=== PATIENT | male | born 1965 | race Caucasian/White ===

== ENCOUNTER → 2018-09-27 | Outpatient (CLI) | payer OTHER ==
--- NOTE | 2018-09-27 10:33 | CT ---
EXAMINATION TYPE: CT chest w con DATE OF EXAM: 09/27/2018 COMPARISON: None HISTORY: 52-year-old male Solitary pulmonary nodules TECHNIQUE: Contiguous axial scanning of the chest after the administration of 100 mL of Isovue 300. Coronal/sagittal reconstructions performed. CT DLP: 327.4mGycm. Automatic exposure control utilized for a dose reduction. FINDINGS: Heart normal size without pericardial effusion. Aorta normal caliber with conventional branching anatomy. Borderline to mildly enlarged caliber to the main right and left pulmonary arteries are 2.6 and 2.5 c m, respectively. Findings there represent underlying pulmonary chill hypertension. No thoracic lymphadenopathy by CT size criteria. Scattered bilateral pulmonary nodules are present, the largest is, shape and density calcified measur ing 1.8 x 0.8 cm, possible calcified granuloma. Second dominant nodule is present at the peripheral right lower lobe, axial image 34 measuring 1.6 cm with some punctate eccentric calcifications. Third dominant nodule posterolateral right mid lung measuring 1.1 x 0.5 cm. Additional scattered pulmonary nodules are present, some of which are clustered suggesting the nickel plater olateral left lower lobe axial images 30 through 34 with individual nodules measuring up to 8 mm. A few additional scattered 4 mm and smaller pulmonary nodules are present. No consolidation or pleural effusion. Visualized upper abdomen shows no gross abnormality. Bones: Degenerative disc disease midthoracic spine. IMPRESSION: 1. Scattered bilateral pulmonary nodules. The largest is on the left measuring up to 1.8 cm and is de nsely calcified suggesting a calcified granuloma. Other nodules are indeterminate measuring up to 1.6 cm. Per new Fleischner guidelines, recommend CT in 3-[address] again at 18-24 months if stable at that time. 2. Possible underlying pulmonary arterial hypertension. Clinically correlate.
== END | disposition home or self-care (01) ==
LOC: RADCTMAIN 08:47
PROVIDERS: ATTEND Family Medicine
DX: R91.8 Other nonspecific abnormal finding of lung field (principal)
CPT/HCPCS: 71260; Q9967

== ENCOUNTER → 2018-09-29 | Outpatient (CLI) | payer OTHER ==
--- NOTE | 2018-09-29 10:17 | MR ---
EXAMINATION TYPE: MR lumbar spine wo con DATE OF EXAM: 09/29/2018 COMPARISON: NONE HISTORY: Dorsalgia / Spine pain TECHNIQUE: T1 and T2 axial and sagittal images of the lumbar spine are submitted. FINDINGS: There is no abnormal signal seen within the visualized spinal cord or paraspinal soft tissu es. Simple appearing right renal cyst incidentally noted At L1-2 there is no disc herniation or canal stenosis. No foraminal encroachment At L2-3 there is no disc herniation or canal stenosis. No foraminal encroachment. Hypertrophic change facets. At L3-4 there is there is moderate degenerative disc disease with broad-based central disc protrusion or herniation. There is moderate compression thecal sac. Facet arthropathy and ligamentum flavum con tribute to moderate canal stenosis and bilateral foraminal encroachment. At L4-5 there is degenerative disc disease with broad-based disc protrusion. Hypertrophic change face ts and ligamentum flavum result in moderate canal stenosis and bilateral foraminal encroachment. At L5-S1 there is mild degenerative disc disease and facet arthropathy. No canal stenosis or foramina l encroachment IMPRESSION: 1. L3-4 and L4-5 there is broad-based central disc protrusion with hypertrophic changes result in mod erate canal stenosis and bilateral foraminal encroachment. EXAMINATION TYPE: MR cervical spine wo con DATE OF EXAM: 09/29/2018 COMPARISON: NONE HISTORY: Dorsalgia / Spine pain TECHNIQUE: T1 sagittal and coronal, T2 sagittal, and gradient echo axial views of the cervical spine are submitted. FINDINGS: The cranial cervical junction is preserved. There is no abnormal signal seen within the sp inal cord or paraspinal soft tissues. At C2-3 there is no disc herniation or canal stenosis. No foraminal encroachment. At C3-4 there is degenerative disc disease with posterior spondylosis and uncovertebral joint project ing. Disc bulging noted and there is moderate bilateral foraminal encroachment. No Canal stenosis. At C4-5 there is degenerative disc disease with posterior spondylosis. There is disc bulging greater paracentrally and laterally the right with moderate bilateral foraminal encroachment greater on the r ight. At C5-6 there is advanced degenerative disc disease with posterior spondylosis and uncovertebral join t hypertrophy. There is moderate bilateral foraminal encroachment. No Canal stenosis. At C6-7 there is degenerative disc disease and uncovertebral joint hypertrophy greater on the left wi th moderate left foraminal encroachment and mild right foraminal encroachment. Disc bulging greater p aracentrally to the left also noted. No Canal stenosis. At C7-T1 there is no disc herniation or canal stenosis. No foraminal encroachment. IMPRESSION: 1. Multilevel degenerative disc disease with multilevel posterior spondylosis, uncovertebral joint h ypertrophy, disc bulging and disc osteophyte complex resulting in significant bilateral foraminal enc roachment primarily involving levels C3-C7.
== END | disposition home or self-care (01) ==
LOC: RADMRIMAIN 09:08
PROVIDERS: ATTEND Family Medicine
DX: M48.061 Spinal stenosis, lumbar region without neurogenic claudication (principal); M51.26 Other intervertebral disc displacement, lumbar region; M50.31 Other cervical disc degeneration, high cervical region; M47.812 Spondylosis without myelopathy or radiculopathy, cervical region; M50.80 Other cervical disc disorders, unspecified cervical region
CPT/HCPCS: 72141; 72148

== ENCOUNTER 2018-10-28 13:31 | Observation (INO) | payer OTHER ==
[2018-10-28 13:40] VITALS: TEMP 98.1
[2018-10-28] MEDS ORDERED: NITROGLYCERIN OINT 1 INCH/GM PACKET TOPICAL STA (13:54)
[2018-10-28] MEDS ORDERED: ASPIRIN 81 MG PO STA (13:54)
--- NOTE | 2018-10-28 13:57 | ED ---
General Adult HPI - General Chief complaint: Chest Pain Stated complaint: Chest pain Time Seen by Provider: 10/28/18 13:40 Source: patient, RN notes reviewed Mode of arrival: ambulatory Limitations: no limitations - History of Present Illness Initial comments: Patient is a pleasant 52-year-old male presenting to the emergency Department with complaints of chest tightness. Onset of symptoms was around noon. Discomfort was somewhat severe and lasted a couple of minutes. Discomfort has been mild since that time and remains mild at this point. No radiation. No associated dyspnea or diaphoresis. Patient did feel somewhat nauseated earlier. Early this morning patient did have an episode of some discomfort of his right arm however none since that time. No history of similar symptoms previously. - Related Data Home Medications Medication Instructions Recorded Confirmed Naproxen 500 mg PO TID 10/28/18 10/28/18 Omeprazole [PriLOSEC] 20 mg PO AC-BID 10/28/18 10/28/18 tiZANidine [Zanaflex] 4 mg PO TID 10/28/18 10/28/18 Allergies Allergy/AdvReac Type Severity Reaction Status Date / Time No Known Allergies Allergy Verified 10/28/18 14:58 Review of Systems ROS Statement: Those systems with pertinent positive or pertinent negative responses have been documented in the HPI. ROS Other: All systems not noted in ROS Statement are negative. Constitutional: Denies: fever Eyes: Denies: eye pain ENT: Denies: ear pain Respiratory: Denies: cough, dyspnea Cardiovascular: Reports: chest pain Endocrine: Denies: fatigue Gastrointestinal: Reports: nausea. Denies: abdominal pain Genitourinary: Denies: dysuria Musculoskeletal: Denies: back pain Skin: Denies: rash Neurological: Denies: weakness Past Medical History Additional Past Medical History / Comment(s): back pain History of Any Multi-Drug Resistant Organisms: None Reported Past Surgical History: Appendectomy, Hernia Repair Smoking Status: Never smoker Past Alcohol Use History: None Reported Past Drug Use History: Marijuana General Exam Limitations: no limitations General appearance: alert, in no apparent distress Head exam: Present: atraumatic Eye exam: Present: normal appearance, PERRL ENT exam: Present: normal oropharynx Neck exam: Present: normal inspection Respiratory exam: Present: normal lung sounds bilaterally, chest wall tenderness Cardiovascular Exam: Present: regular rate, normal rhythm Expanded Peripheral pulses: 2+: Radial (R), Radial (L), Dorsalis Pedis (R), Dorsalis Pedis (L) GI/Abdominal exam: Present: soft. Absent: tenderness Extremities exam: Present: normal inspection. Absent: pedal edema, calf tenderness Neurological exam: Present: alert Psychiatric exam: Present: normal affect, normal mood Skin exam: Present: normal color Course Vital Signs 10/28/18 10/28/18 10/28/18 13:37 14:30 15:00 Temperature 98.1 F Pulse Rate 559 H 61 50 L Respiratory 18 15 18 Rate Blood Pressure 152/103 123/82 104/49 O2 Sat by Pulse 100 98 96 Oximetry 10/28/18 15:30 Temperature Pulse Rate 45 L Respiratory 14 Rate Blood Pressure 114/78 O2 Sat by Pulse 98 Oximetry EKG Findings - EKG Comments: EKG Findings:: Sinus bradycardia 56. MI 168. QRS 74. QT or 2. QTC 387. Normal axis. Normal QRS. No acute ST change. T waves are somewhat prominent. Medical Decision Making - Medical Decision Making Patient reevaluated and resting comfortably in bed. Patient and family updated on results and plan. Case was discussed in detail with Dr. walters, covering for hospital call, who will admit. - Lab Data Result diagrams: 10/28/18 14:14 10/28/18 14:14 Lab Results 10/28/18 10/28/18 10/28/18 Range/Units 14:14 14:14 14:14 WBC 10.5 (3.8-10.6) k/uL RBC 4.86 (4.30-5.90) m/uL Hgb 14.5 (13.0-17.5) gm/dL Hct 43.7 (39.0-53.0) % MCV 89.9 (80.0-100.0) fL MCH 29.9 (25.0-35.0) pg MCHC 33.2 (31.0-37.0) g/dL RDW 14.5 (11.5-15.5) % Plt Count 498 H (150-450) k/uL Neutrophils % 60 % Lymphocytes % 28 % Monocytes % 6 % Eosinophils % 4 % Basophils % 1 % Neutrophils # 6.2 (1.3-7.7) k/uL Lymphocytes # 2.9 (1.0-4.8) k/uL Monocytes # 0.6 (0-1.0) k/uL Eosinophils # 0.5 (0-0.7) k/uL Basophils # 0.1 (0-0.2) k/uL PT 10.0 (9.0-12.0) sec INR 0.9 (<1.2) APTT 26.1 (22.0-30.0) sec D-Dimer 0.62 H (<0.60) mg/L FEU Sodium 140 (137-145) mmol/L Potassium 4.1 (3.5-5.1) mmol/L Chloride 107 (98-107) mmol/L Carbon Dioxide 25 (22-30) mmol/L Anion Gap 8 mmol/L BUN 16 (9-20) mg/dL Creatinine 0.87 (0.66-1.25) mg/dL Est GFR (CKD-EPI)AfAm >90 (>60 ml/min/1.73 sqM) Est GFR (CKD-EPI)NonAf >90 (>60 ml/min/1.73 sqM) Glucose 110 H (74-99) mg/dL Calcium 10.1 (8.4-10.2) mg/dL Magnesium 2.0 (1.6-2.3) mg/dL Total Bilirubin 0.3 (0.2-1.3) mg/dL AST 16 L (17-59) U/L ALT 12 L (21-72) U/L Alkaline Phosphatase 68 (38-126) U/L Troponin I (0.000-0.034) ng/mL Total Protein 6.3 (6.3-8.2) g/dL Albumin 3.8 (3.5-5.0) g/dL 10/28/18 Range/Units 14:14 WBC (3.8-10.6) k/uL RBC (4.30-5.90) m/uL Hgb (13.0-17.5) gm/dL Hct (39.0-53.0) % MCV (80.0-100.0) fL MCH (25.0-35.0) pg MCHC (31.0-37.0) g/dL RDW (11.5-15.5) % Plt Count (150-450) k/uL Neutrophils % % Lymphocytes % % Monocytes % % Eosinophils % % Basophils % % Neutrophils # (1.3-7.7) k/uL Lymphocytes # (1.0-4.8) k/uL Monocytes # (0-1.0) k/uL Eosinophils # (0-0.7) k/uL Basophils # (0-0.2) k/uL PT (9.0-12.0) sec INR (<1.2) APTT (22.0-30.0) sec D-Dimer (<0.60) mg/L FEU Sodium (137-145) mmol/L Potassium (3.5-5.1) mmol/L Chloride (98-107) mmol/L Carbon Dioxide (22-30) mmol/L Anion Gap mmol/L BUN (9-20) mg/dL Creatinine (0.66-1.25) mg/dL Est GFR (CKD-EPI)AfAm (>60 ml/min/1.73 sqM) Est GFR (CKD-EPI)NonAf (>60 ml/min/1.73 sqM) Glucose (74-99) mg/dL Calcium (8.4-10.2) mg/dL Magnesium (1.6-2.3) mg/dL Total Bilirubin (0.2-1.3) mg/dL AST (17-59) U/L ALT (21-72) U/L Alkaline Phosphatase (38-126) U/L Troponin I <0.012 (0.000-0.034) ng/mL Total Protein (6.3-8.2) g/dL Albumin (3.5-5.0) g/dL - Radiology Data Radiology results: report reviewed (Computed tomography scan of the chest negative for pulmonary embolism.), image reviewed (Chest x-ray shows granulomatous disease.) Disposition Clinical Impression: Chest pain Disposition: ADMITTED IP TO THIS HOSP Is patient prescribed a controlled substance at d/c from ED?: No Referrals: Pratibha Freeman MD [Primary Care Provider] - 1-2 days Time of Disposition: 16:16
[2018-10-28 14:29] LABS: Basophils # (A) 0.1 k/uL (0-0.2); Basophils % (A) 1 %; Eosinophils # (A) 0.5 k/uL (0-0.7); Eosinophils % (A) 4 %; HCT 43.7 % (39.0-53.0); HGB 14.5 gm/dL (13.0-17.5); Lymphocytes # (A) 2.9 k/uL (1.0-4.8); Lymphocytes % (A) 28 %; MCH 29.9 pg (25.0-35.0); MCHC 33.2 g/dL (31.0-37.0); MCV 89.9 fL (80.0-100.0); Mean Platelet Volume 6.8; Monocytes # (A) 0.6 k/uL (0-1.0); Monocytes % (A) 6 %; Neutrophils # (A) 6.2 k/uL (1.3-7.7); Neutrophils % (A) 60 %; Platelet Count 498 k/uL (150-450); RBC 4.86 m/uL (4.30-5.90); RDW 14.5 % (11.5-15.5); WBC 10.5 k/uL (3.8-10.6)
[2018-10-28 14:39] LABS: ALT 12 U/L (21-72); AST 16 U/L (17-59); African American GFR (CKD) >90 (>60 ml/min/1.73 sqM); Albumin 3.8 g/dL (3.5-5.0); Alkaline Phosphatase 68 U/L (38-126); Anion Gap 8 mmol/L; Blood Urea Nitrogen 16 mg/dL (9-20); Calcium 10.1 mg/dL (8.4-10.2); Carbon Dioxide 25 mmol/L (22-30); Chloride 107 mmol/L (98-107); Glucose 110 mg/dL (74-99); Potassium 4.1 mmol/L (3.5-5.1); Sodium 140 mmol/L (137-145); Total Bilirubin 0.3 mg/dL (0.2-1.3); Total Protein 6.3 g/dL (6.3-8.2)
[2018-10-28 14:44] LABS: INR 0.9 (<1.2); Partial Thromboplastin Time 26.1 sec (22.0-30.0)
[2018-10-28 14:56] LABS: D-Dimer 0.62 mg/L FEU (<0.60)
--- NOTE | 2018-10-28 14:59 | XR ---
EXAMINATION TYPE: XR chest 2V DATE OF EXAM: 10/28/2018 COMPARISON: NONE HISTORY: Chest pain TECHNIQUE: Frontal and lateral views of the chest are obtained. FINDINGS: Heart and mediastinum are normal. There are 1 cm nodular densities in the left and right l clay which are relatively dense and appear to be calcifying granulomas on the CT chest 09/27/2018. Ther e are no hilar masses. There is no pleural effusion. Bony thorax is intact. There are chest leads. IMPRESSION: Old granulomatous disease. Normal heart.
--- NOTE | 2018-10-28 16:10 | CT ---
EXAMINATION TYPE: CT angio chest DATE OF EXAM: 10/28/2018 4:05 PM COMPARISON: None HISTORY: Chest and back pain. CT DLP: 323.6 mGycm Automated exposure control for dose reduction was used. CONTRAST: CTA scan of the thorax is performed with IV Contrast, patient injected with 100ml mL of Isovue 370, p ulmonary embolism protocol. There are 3-D post processed images.. FINDINGS: There is 1.5 James partly calcified subpleural nodule lateral right midlung field in the superior se gment right lower lobe. There is 2 cm calcific density lateral aspect left upper lobe. There is jerri l contrast opacification of the pulmonary arteries. I see no filling defects. There is no pleural effusion. There are no hilar masses. There is no mediastinal adenopathy. Heart si ze is normal. There is no pericardial effusion. The bony thorax is intact. There is no evidence of ao rtic aneurysm or dissection. IMPRESSION: OLD GRANULOMATOUS DISEASE. NO EVIDENCE OF PULMONARY EMBOLISM. GRANULOMATA APPEAR UNCHANGED COMPARED T O CHEST CT SCAN 09/27/2018.
[2018-10-28] MEDS ORDERED: NITROGLYCERIN SL TABS 0.4 MG TAB SUBLINGUAL PRN (16:16)
[2018-10-28 16:21] VITALS: BP 110/74
[2018-10-28 16:32] VITALS: PULSE 64; RESP 13
[2018-10-28] MEDS ORDERED: NITROGLYCERIN OINT 1 INCH/GM PACKET TOPICAL SCH (18:00)
[2018-10-29] MEDS ORDERED: ASPIRIN 325 MG TAB PO SCH (09:00)
--- NOTE | 2018-10-30 07:03 | P.DS ---
Providers Date of admission: 10/28/18 16:17 Attending physician: Rubén Diaz MD Consults: 10/28/18 16:17 Consult Physician Urgent Consulting Provider: Korina Darden Consult Reason/Comments: cp Do you want consulting provider notified?: Yes Primary care physician: Pratibha Freeman Hospital Course: please consider this as H&P and DC summary , although pt is not discharged but signed leaving AMA as per documents i was called by the ED physician Dr. Lr to admit this pt under our service for chest pain . it looks like he left from ED , at the same night pt signed leaving AMA before i have a chance to evaluate him or see him Plan - Discharge Summary New Discharge Prescriptions: No Action tiZANidine [Zanaflex] 4 mg PO TID Omeprazole [PriLOSEC] 20 mg PO AC-BID Naproxen 500 mg PO TID Discharge Medication List Naproxen 500 mg PO TID 10/28/18 [History] Omeprazole [PriLOSEC] 20 mg PO AC-BID 10/28/18 [History] tiZANidine [Zanaflex] 4 mg PO TID 10/28/18 [History] Follow up Appointment(s)/Referral(s): Pratibha Freeman MD [Primary Care Provider] - 1-2 days Discharge Disposition: Left Against Medical Advice
== END 2018-10-28 17:44 | disposition left against medical advice (07) ==
LOC: EC 13:31 → 1SOBS 16:17
PROVIDERS: ADMIT Internal Medicine; ATTEND Internal Medicine
DX: R07.89 Other chest pain (principal); Z53.21 Procedure and treatment not carried out due to patient leaving prior to being seen by health care provider; R11.0 Nausea; M54.9 Dorsalgia, unspecified; Z79.1 Long term (current) use of non-steroidal anti-inflammatories (NSAID); Z79.899 Other long term (current) drug therapy; Z90.49 Acquired absence of other specified parts of digestive tract
CPT/HCPCS: 99285; 36415; 93005; 85379; 80053; 83735; 84484; 85025; 85610; 85730; 71046; 71275; G0378; Q9967

== ENCOUNTER → 2018-11-10 | Outpatient (CLI) | payer OTHER ==
--- NOTE | 2018-11-10 09:38 | MR ---
EXAMINATION TYPE: MR thoracic spine wo con DATE OF EXAM: 11/10/2018 COMPARISON: None HISTORY: Intervertebral disc displacement, thoracic Standard multiplanar, multisequence MRI departmental protocol Multiplanar, multisequence images of the thoracic spine were acquired. FINDINGS: Alignment is anatomic. Discogenic marrow changes are seen at level T8. Degenerative disc disease at T 6-T7, T7-T8 and T8-T9 noted. At T7-T8 there is a tiny focal central disc bulge with no canal stenosis or spinal cord contact. Neur al foramina are patent.. Remaining levels demonstrate no disc herniation, canal stenosis, or foraminal encroachment. No abnorm al signal seen in the visualized spinal cord. No abnormal signal paraspinal soft tissues are noted. IMPRESSION: 1. Degenerative disc disease T6-T7, T7-T8 and T8-T9. 2. Central disc tiny bulge T7-T8 with no canal stenosis or foraminal encroachment.
== END | disposition home or self-care (01) ==
LOC: RADMRIMAIN 08:34
PROVIDERS: ATTEND Orthopaedic Surgery Orthopaedic Surgery of the Spine
DX: M51.24 Other intervertebral disc displacement, thoracic region (principal); M51.34 Other intervertebral disc degeneration, thoracic region
CPT/HCPCS: 72146

== ENCOUNTER → 2020-01-24 | Outpatient (CLI) | payer OTHER ==
--- NOTE | 2020-01-24 08:56 | CT ---
EXAMINATION TYPE: CT chest w con DATE OF EXAM: 01/24/2020 COMPARISON: 10/28/2018 HISTORY: 54-year-old male R91.8 Multiple lung nodules TECHNIQUE: Contiguous axial scanning of the chest after the administration of 100 mL of Isovue 300. Coronal/sagittal reconstructions performed. CT DLP: 491mGycm. Automatic exposure control utilized for a dose reduction. FINDINGS: Heart normal size without pericardial effusion. Aorta normal caliber with mild atherosclerotic arch calcifications and conventional arch vessel branc francis anatomy. No thoracic lymphadenopathy by CT size criteria. Scattered calcified and noncalcified pulmonary nodules are redemonstrated. The largest, lateral left midlung measuring 1.7 cm and peripheral right lower lobe measuring 1.6 cm remain unchanged and are pa rtially calcified. Additional scattered smaller noncalcified pulmonary nodules are present throughout and remain unchanged. Minimal centrilobular emphysema in the upper lungs. No consolidation or pleural effusion. Visualized upper abdomen shows some diverticular change along the visualized left side of the colon. Bones: Some bony changes at the greater tuberosity suggest chronic rotator cuff tendinopathy. Mild to moderate degenerative disc disease lower thoracic spine. IMPRESSION: 1. Multiple calcified and noncalcified pulmonary nodules redemonstrated, measuring up to 1.7 cm, unch anged for 1 year 3 months suggesting a benign etiology. An additional precautionary one-year follow-u p can be performed. Old granulomatous disease is suspected. 2. Minimal emphysematous change in the upper lungs.
== END | disposition home or self-care (01) ==
LOC: RADCTMAIN 07:34
PROVIDERS: ATTEND Student in an Organized Health Care Education/Training Program
DX: R91.8 Other nonspecific abnormal finding of lung field (principal); J43.9 Emphysema, unspecified
CPT/HCPCS: 71260; Q9967

== ENCOUNTER → 2020-03-05 | Outpatient (CLI) | payer SELFPAY ==
--- NOTE | 2020-03-06 16:48 | MR ---
EXAMINATION TYPE: MR lumbar spine wo con DATE OF EXAM: 03/05/2020 COMPARISON: Prior MRI lumbar spine September 29, 2018. HISTORY: Intervertebral disc displacement per order. Low back pain into bilateral buttocks and thigh for 1.5 years per patient. TECHNIQUE: Multiplanar, multisequence imaging of the lumbar spine is performed without IV contrast. FINDINGS: Sagittal images of the lumbar spine show vertebral body heights and alignment to remain sat isfactory. Persistent disc desiccation with mild to moderate disc space narrowing L3-L4 and L4-L5 lev els. Mild multilevel anterior spurring in the mid to lower lumbar spine The conus medullaris remains normal in position and signal ending mid L1 level. The bone marrow signal intensity is within normal limits. Axial images show T12-L1 level to remain within normal limits. Axial images at L1-L2 level shows mild broad-based disc bulge minimally effacing anterior thecal sac on image 23, no significant change from prior. Axial images at L2-L3 level remain within normal limits. Axial images at the L3-L4 level show posterior annular tear with moderate broad-based posterior disc protrusion effacing the anterior thecal sac and causing mild to moderate right greater than left bila teral neural foraminal narrowing. No significant change from prior. Mild facet arthropathy bilaterall y. Axial images at the L4-L5 level demonstrates mild facet arthropathy bilaterally. There is moderate br oad-based disc bulge effacing anterior thecal sac. There is mild to moderate right greater than left bilateral neural foraminal narrowing. No significant change from prior. Axial images at the L5-S1 level redemonstrate mild facet arthropathy otherwise are felt within normal limits. Simple appearing 1.2 cm thin-walled cyst posterior right kidney axial image 25 not significantly oconnell ged from prior study. IMPRESSION: Multilevel mild to moderate degenerative changes greatest at L3-L4 and L4-L5 level as det gela above. No significant change or progression from prior MRI
== END | disposition home or self-care (01) ==
LOC: RADMRIMAIN 09:23
PROVIDERS: ATTEND Physical Medicine & Rehabilitation
DX: M47.816 Spondylosis without myelopathy or radiculopathy, lumbar region (principal); M51.26 Other intervertebral disc displacement, lumbar region
CPT/HCPCS: 72148

== ENCOUNTER → 2021-12-22 | Outpatient (CLI) | payer OTHER ==
--- NOTE | 2021-12-24 11:23 | CT ---
EXAMINATION TYPE: CT chest wo con DATE OF EXAM: 12/22/2021 COMPARISON: 01/24/2020 HISTORY: Lung [id number] CT DLP: 495 mGycm. Automated Exposure Control for Dose Reduction was Utilized. TECHNIQUE: CT scan of the thorax is performed without IV contrast. FINDINGS: Heart normal size without pericardial effusion. Aorta normal caliber with mild atherosclerotic arch c alcifications and conventional arch vessel branching anatomy. No thoracic lymphadenopathy by CT size criteria. Scattered calcified and noncalcified pulmonary nodules are redemonstrated. The largest, lateral left midlung measuring 1.7 cm and peripheral right lower lobe measuring 1.6 cm remain unchanged and are pa rtially calcified. Additional scattered smaller noncalcified pulmonary nodules are present throughout and remain unchanged. Minimal centrilobular emphysema in the upper lungs. No consolidation or pleural effusion. Visualized upper abdomen shows some diverticular change along the visualized left side of the colon. There is a indeterminate upper pole posterior renal lesion seen on the prior exam which may be secondary to the view was noted on previous exam of 2019 measures 5 Hounsfield units cyst. Bones: Some bony changes at the greater tuberosity suggest chronic rotator cuff tendinopathy. Mild to moderate degenerative disc disease lower thoracic spine. IMPRESSION: 1. Multiple calcified and noncalcified pulmonary nodules redemonstrated, measuring up to 1.7 cm, unch anged for greater than 2 years. An additional precautionary one-year follow-up can be performed. Old granulomatous disease is suspected. 2. Minimal emphysematous change in the upper lungs.
== END | disposition home or self-care (01) ==
LOC: RADCTMAIN 13:31
PROVIDERS: ATTEND Student in an Organized Health Care Education/Training Program
DX: J43.9 Emphysema, unspecified (principal); R91.8 Other nonspecific abnormal finding of lung field
CPT/HCPCS: 71250

== ENCOUNTER → 2022-12-22 | Outpatient (CLI) | payer MEDICARE, OTHER ==
--- NOTE | 2022-12-22 10:57 | CT ---
EXAMINATION TYPE: CT chest wo con CT DLP: 319.1 mGycm, Automated exposure control for dose reduction was used. DATE OF EXAM: 12/22/2022 9:30 AM COMPARISON: 12/22/2021. CLINICAL INDICATION:Male, 57 years old with history of R91.8 ABNORMAL LUNG FIELD, lung nodules f/u TECHNIQUE: Multiple axial images were obtained through the chest. Sagittal and coronal reformats were created for review. Contrast used: mL of (None if empty) Oral contrast used: (None if empty) FINDINGS: LUNGS/ PLEURA: Scattered calcifications throughout the lungs. No new or enlarging pulmonary nodules. Stable right lower lung peripheral 4 mm pulmonary nodule series 4 image 35. AIRWAY: Patent and unremarkable. HEART: Size within normal limits. MEDIASTINUM: No gross evidence of adenopathy. VASCULATURE: No aortic aneurysm. MUSCULOSKELETAL: No acute osseous abnormalities SOFT TISSUES/LYMPH NODES: Unremarkable. LOWER NECK: No significant findings. UPPER ABDOMEN: No significant findings. IMPRESSION: Stable scattered calcified granulomas and pulmonary nodules. No new or enlarging pulmonary nodule. Co ntinued yearly follow-up with CT low dose lung cancer screening.
== END | disposition home or self-care (01) ==
LOC: RADCTMAIN 09:13
PROVIDERS: ATTEND Student in an Organized Health Care Education/Training Program
DX: J84.10 Pulmonary fibrosis, unspecified (principal); R91.8 Other nonspecific abnormal finding of lung field
CPT/HCPCS: 71250